=== PATIENT | female | born 1980 | race African-American/Black ===

== ENCOUNTER 2022-10-06 08:14 | Day surgery (SDC) | payer BC ==
[2022-10-01 18:12] LABS: Hemoglobin 8.3 g/dL (12.0-15.5); Mean Corpuscular Hemoglobin 19.6 pg (27.0-33.0); Mean Corpuscular Volume 67.6 fl (81.6-98.3); Platelet Count 312 10x3/uL (150-450); RBC Distribution Width 20.3 % (11.5-14.5); Red Blood Cell (RBC) Count 4.23 10x6/uL (3.90-5.03); White Blood Cell (WBC) Count 7.9 10x3/uL (3.5-10.5)
[2022-10-01 18:15] LABS: BHCG - Serum Negative (NEGATIVE); Pregs Control Background? CLEAR/WHITE (CLR/WHITE); Pregs Control Bar Appear? YES (CONTROL BAR)
[2022-10-06] MEDS ORDERED: Famotidine/PF 20 mg/2ml Vial ONE (08:36)
[2022-10-06] MEDS ORDERED: CeleCOXIB 100 MG CAP ONE (08:36)
[2022-10-06] MEDS ORDERED: Gabapentin 300 MG CAP ONE (08:36)
[2022-10-06] MEDS ORDERED: Bupivacaine HCl 0.5%/Epinephrine 1:200,000/PF 30 ml Vial ONE (09:38)
[2022-10-06] MEDS ORDERED: SUGAMMADEX SODIUM 200 MG/2 ML VIAL ONE (09:50)
[2022-10-06] MEDS ORDERED: PROPOFOL 20 ML ONE (09:53)
[2022-10-06] MEDS ORDERED: Ondansetron PF 4 MG/2 ML Vial ONE (09:53)
[2022-10-06] MEDS ORDERED: Fentanyl 100 MCG/2 ML VIAL ONE (09:53)
[2022-10-06] MEDS ORDERED: Lidocaine 1% PF 5 ML VIAL ONE (09:53)
[2022-10-06] MEDS ORDERED: Rocuronium Bromide 10 MG/ML (10ML VIAL) ONE (09:53)
[2022-10-06] MEDS ORDERED: Midazolam HCl 2 mg/2 ml Vial ONE (10:07)
[2022-10-06] MEDS ORDERED: CEFAZOLIN 2 GM VIAL ONE (10:13)
== END 2022-10-06 15:25 | disposition home or self-care (01) ==
LOC: CSHSDC 08:14
PROVIDERS: ATTEND Obstetrics & Gynecology
PROC: 0UT94ZZ Resection of Uterus, Percutaneous Endoscopic Approach (ICD-10-PCS; principal; 2022-10-06)
PROC: 0UT74ZZ Resection of Bilateral Fallopian Tubes, Percutaneous Endoscopic Approach (ICD-10-PCS; principal; 2022-10-06)
DX: N80.03 Adenomyosis of the uterus (principal); D25.9 Leiomyoma of uterus, unspecified; R19.2 Visible peristalsis; D50.0 Iron deficiency anemia secondary to blood loss (chronic); F17.210 Nicotine dependence, cigarettes, uncomplicated; Z90.49 Acquired absence of other specified parts of digestive tract; Z98.51 Tubal ligation status; Z79.899 Other long term (current) drug therapy
CPT/HCPCS: 36415; 84703; 85027; 86850; 86900; 86901; 88307; J2250; J2405; J2704; J3010; S0028